=== PATIENT | female | born 1985 | race Asian ===

== ENCOUNTER 2020-04-10 12:44 | Emergency (ER) | payer OTHER, SELFPAY ==
--- NOTE | ~2020-04-10 | XR_ITS ---
EXAMINATION: XR CLAVICLE, LEFT CLINICAL INFORMATION: Pain COMPARISON: None TECHNIQUE: Two views of the left clavicle. FINDINGS: Alignment is normal at the acromioclavicular and glenohumeral joints. The acromioclavicular joint is normal. No clavicular fracture. The coracoclavicular distance is normal. No overt periclavicular soft tissue swelling. The glenohumeral joint space is preserved. No glenohumeral arthritic deformity, fracture or subluxation. No calcium deposition within the rotator cuff tendons. The visualized left lung is normal. XR/XR clavicle LT IMPRESSION: Normal left clavicle.
[2020-04-10 13:17] VITALS: BP 126/82; BP 132/82; PULSE 102; RESP 18; TEMP 36.6; O2SAT 100; BMI 21.1
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
== END 2020-04-10 16:37 | disposition home or self-care (01) ==
PROVIDERS: Emergency Provider Emergency Medicine
DX: S40.012A Contusion of left shoulder, initial encounter (principal); M25.512 Pain in left shoulder; Y04.8XXA Assault by other bodily force, initial encounter; Y93.9 Activity, unspecified; Y92.9 Unspecified place or not applicable; Y99.9 Unspecified external cause status; Z79.899 Other long term (current) drug therapy
CPT/HCPCS: 73000; 99283

== ENCOUNTER 2020-07-01 13:19 | Outpatient (REF) | payer OTHER, SELFPAY ==
--- NOTE | ~2020-07-01 | MR_ITS ---
EXAMINATION: MR CERVICAL SPINE WITHOUT CONTRAST CLINICAL INFORMATION: Chronic pain syndrome. Radiculopathy. Left shoulder pain. Neck pain. COMPARISON: None. TECHNIQUE: MRI of the cervical spine was obtained using routine sequences without contrast. FINDINGS: VERTEBRAL BODIES AND PARASPINAL SOFT TISSUES: There is a mild leftward curvature of the cervical spine. The marrow signal is homogeneous. The discs are fairly well hydrated. There are no compression fractures. Mild retrosubluxation evident at the C5-C6 level. The paraspinal soft tissues are normal. The right vertebral artery has an aberrant course along the mid cervical segment and is not visible within the right transverse foramen. The lung apices are clear. CERVICOMEDULLARY JUNCTION AND VISUALIZED POSTERIOR FOSSA: The craniovertebral junction and imaged portions of the brain parenchyma appear normal. No cord signal abnormality or syrinx is seen. SPINAL LEVELS: C2-C3, C3-C4, and C4-C5: Well-hydrated normal appearance of the discs without central canal stenosis or foraminal narrowing. C5-C6: Broad-based disc bulge with a left paracentral disc protrusion mildly distorts the ventral cord on the left side. Mild central canal stenosis. Underlying mild uncovertebral joint spurring disc bulge with mild right foraminal encroachment. C6-C7: Small right paracentral disc protrusion. No central canal stenosis or foraminal narrowing. C7-T1: Well-hydrated disc without central canal stenosis or foraminal encroachment. MR/MR cervical spine wo con IMPRESSION: Mild spondylosis and retrosubluxation at the C5-C6 level with a disc-osteophyte complex and left paracentral disc protrusion mildly distorting left ventrolateral cord. Mild central canal stenosis and mild right foraminal narrowing Small right paracentral disc protrusion at T6-C7 level without cord distortion or central canal stenosis. Mild leftward cervical spinal curvature.
== END 2020-07-01 13:20 | disposition home or self-care (01) ==
LOC: HO.MRI 13:19
PROVIDERS: PCP Nurse Practitioner Family; Visit Provider Physician Assistant
DX: M25.512 Pain in left shoulder (principal); G89.4 Chronic pain syndrome; M54.12 Radiculopathy, cervical region
CPT/HCPCS: 72141

== ENCOUNTER 2020-07-06 13:13 | Outpatient (REF) | payer OTHER, SELFPAY ==
--- NOTE | ~2020-07-06 | MR_ITS ---
EXAMINATION: MR SHOULDER WITH CONTRAST, LEFT CLINICAL INFORMATION: Chronic pain syndrome. COMPARISON: None TECHNIQUE: MRI of the shoulder was performed following the intra-articular administration of a dilute gadolinium-containing solution (arthrogram) on a high-field scanner. FINDINGS: ROTATOR CUFF: Mild heterogeneity suggestive of mild tendinosis of the supraspinatus and infraspinatus tendons. No focal tendon defect or retraction. Infraspinatus intact. Mild subscapularis tendinosis. No muscle atrophy or fatty infiltration. BICEPS: Intact. CORACOACROMIAL ARCH: The undersurface of the acromion is mildly curved with no subacromial spur. Acromioclavicular joint appears intact. LABRUM/CAPSULE: No definite labral tear is identified. No paralabral cyst. Inferior capsule is intact. GLENOHUMERAL JOINT/MARROW: Marrow signal is within normal limits. No fracture. No focal cartilage defects. MR/MR shoulder LT w con IMPRESSION: 1. Mild supraspinatus, infraspinatus and subscapularis tendinosis. No focal tendon defect or retraction. 2. No significant abnormality is otherwise identified.
--- NOTE | ~2020-07-06 | FL_ITS ---
EXAMINATION: FL ARTHROGRAM SHOULDER, LEFT CLINICAL INFORMATION: Pain left shoulder. COMPARISON: None TECHNIQUE: Explaining fluoroscopy-guided left shoulder injection procedure, benefits and risks for MRI, a written consent was obtained. Patient was placed supine on fluoroscopy table and left anterior shoulder joint area was cleaned and draped in usual sterile manner. 1% lidocaine was injected at the puncture site. A 22-gauge spinal needle was then inserted from the skin into the anterior joint space and 2 mL of nonionic contrast was injected. A single image was obtained. Subsequently, 0.1 mL of gadolinium diluted with 3 mL of 1% lidocaine and 6 mL of saline was injected and needle withdrawn. Complete hemostasis was achieved at the puncture site. Patient tolerated procedure extremely well. FINDINGS: On a single anterior image obtained through the shoulder on the fluoroscopy, there is contrast visualized in the anterior joint space. The glenohumeral joint space in AC joint space is maintained normal. No bony abnormality seen. FLUOROSCOPY TIME: 0.8 minutes. DOSE AREA PRODUCT: 2.486 uGy-m2 (microgray-meter squared). FL/FL arthrogram shoulder LT IMPRESSION: Successful fluoroscopy-guided left shoulder arthrogram performed without immediate complications.
== END 2020-07-06 13:14 | disposition home or self-care (01) ==
LOC: HO.XRAY 13:13
PROVIDERS: PCP Nurse Practitioner Family; Visit Provider Physician Assistant
DX: G89.4 Chronic pain syndrome (principal); M25.512 Pain in left shoulder
CPT/HCPCS: 23350; 73040; 73222